=== PATIENT | male | born 1985 | race Two or more races ===

== ENCOUNTER 2020-04-24 20:14 | Emergency (ER) | payer OTHER ==
[~2020-04-24] VITALS: Ht 167.6 cm; Wt 82.8 kg
--- NOTE | 2020-04-24 20:27 | NUR ---
assessment made. chart up for MD to see. patient c/o left knee swelling / abrasion and right lower leg abrasion s/p hit with a pallet while at work. no bleeding noted.
--- NOTE | 2020-04-24 21:15 | NUR ---
seen by PA with orders.
--- NOTE | 2020-04-24 22:14 | NUR ---
abdirashid wrap provided to patient. instruction given. verbalized undertanding. discharged.
[2020-04-24 22:17] VITALS: BP 148/81
== END 2020-04-24 22:19 | disposition home or self-care (01) ==
LOC: ED 20:44
DX: S80.12XA Contusion of left lower leg, initial encounter (principal); S90.511A Abrasion, right ankle, initial encounter; X58.XXXA Exposure to other specified factors, initial encounter; Y93.89 Activity, other specified; Y92.89 Other specified places as the place of occurrence of the external cause; Y99.0 Civilian activity done for income or pay
CPT/HCPCS: 99283